=== PATIENT | male | born 1990 | race Caucasian/White ===

== ENCOUNTER 2017-06-17 16:23 | Emergency (ER) | payer BC ==
[~2017-06-17] VITALS: Ht 193 cm; Wt 87.0 kg
[2017-06-17] MEDS ORDERED: IBUP200C93 PO (16:31)
[2017-06-17] MEDS ORDERED: ACET-2178 PO (16:31)
[2017-06-17] MEDS ORDERED: ONDANSETRON HCL 4MG/2ML VIAL IV STA (18:34)
[2017-06-17] MEDS ORDERED: KETOROLAC 30MG/ML VIAL IV STA (18:34)
[2017-06-17] MEDS ORDERED: SODIUM CHLORIDE 0.9% 1,000 ML IV ONE (18:34)
[2017-06-17] MEDS ORDERED: METOCLOPRAMIDE HCL 10MG/2ML VIAL IV STA (18:34)
[2017-06-17 20:26] LABS: *AMPHETAMINES SCREEN URINE PRESUMTIVE POSITIVE (NEGATIVE); *BARBITURATES SCREEN URINE NEGATIVE (NEGATIVE); *BENZODIAZEPINES SCREEN URINE NEGATIVE (NEGATIVE); *COCAINE SCREEN URINE NEGATIVE (NEGATIVE); CANNABINOID URINE SCREEN PRESUMTIVE POSITIVE (NEGATIVE); METHADONE URINE SCREEN NEGATIVE (NEGATIVE); OPIATES URINE SCREEN NEGATIVE (NEGATIVE); PHENCYCLIDINE URINE SCREEN NEGATIVE (NEGATIVE)
[2017-06-17] MEDS ORDERED: IBUPROFEN 800MG TABLET PO ONE (21:00)
[2017-06-17 23:27] VITALS: BP 117/60
== END 2017-06-17 23:45 | disposition home or self-care (01) ==
LOC: ER 18:26
DX: R51 Headache (principal); M54.2 Cervicalgia
CPT/HCPCS: 70450; 80305; 96361; 96374; 96375; 99285; J1885; J2405; J2765; J7030; Z7610